=== PATIENT | male | born 2005 | race African-American/Black ===

== ENCOUNTER 2023-02-23 12:23 | Emergency (ER) | payer SELFPAY ==
[2023-02-23] MEDS ORDERED: cefTRIAXone (ROCEPHIN) 500 MG VIAL ONE (12:44)
[2023-02-23] MEDS ORDERED: Lidocaine 1% MPF 2 ML VIAL ONE (12:45)
[2023-02-23 13:20] LABS: Bacteria/HPF None Seen HPF (None Seen); Bilirubin Negative (Negative); Blood, Urine Negative (Negative); CAUTI Indications for Culture Dysuria,urgency,freq; Clarity Clear (Clear); Glucose, Urine (Dipstick) Normal (Negative); Ketone, Urine Negative (Negative); Leukocyte 500 Leu/uL (Negative); Nitrite Negative (Negative); Protein, Urine (Dipstick) 10 mg/dL (Neg-Trace); RBC/HPF 0-3 HPF (0-3); Specific Gravity, Urine 1.027 (1.002-1.036); Squamous Epithelial None Seen HPF (0-3); WBC/HPF Greater than 50 HPF (0-3); pH, Urine 6.5 (5.0-9.0)
[2023-02-23 13:24] LABS: Urine Culture Reflex Yes Yes
[2023-02-23] MEDS ORDERED: Bicillin LA 1.2 MILLION UNITS/2 ML SYRINGE ONE (13:30)
[2023-02-23 22:42] LABS: Chlam.trachomatis by PCR,Urine Not Detected (NotDetected); GC N.gonorrhoeae PCR,UrineVOID DETECTED (NotDetected)
[2023-02-24 10:54] LABS: Syphilis Antibody Nonreactive (Nonreactive); Syphilis Antibody Index 0.09 S/CO (<1.00 Non-Reactive)
== END 2023-02-23 14:30 | disposition home or self-care (01) ==
LOC: ERS 12:23
DX: R36.9 Urethral discharge, unspecified (principal); R30.0 Dysuria; N48.89 Other specified disorders of penis; F17.290 Nicotine dependence, other tobacco product, uncomplicated
CPT/HCPCS: 36415; 81001; 86780; 87086; 87491; 87591; 96372; 99284; J0561; J0696